=== PATIENT | male | born 1955 | race Two or more races ===

== ENCOUNTER 2019-02-03 18:39 | Emergency (ER) | payer MEDICARE, MEDICAID ==
[~2019-02-03] VITALS: Ht 167.6 cm; Wt 65.8 kg
[~2019-02-03 18:39] MED LIST: MIRTAZAPINE15 MG ORAL; SEROQUEL50 MG ORAL
--- NOTE | 2019-02-03 18:42 | NUR ---
ED Nurse Note: Pt BRIA from the street, pt had an address due to ETOH. Pt was found wth a bottle of Vodka, "hating on [place] people". Vital signs stable james. Will cont to monitor.
[2019-02-03 18:47] VITALS: BP 125/87
--- NOTE | 2019-02-03 19:07 | Emergency Room Report ---
History of Present Illness General Chief Complaint: Alcohol Intoxication Source: Patient, EMS Present Illness HPI This patient is brought in from the street by EMS. They were called because the patient was intoxicated with a bottle of vodka in his possession that was mostly empty. Apparently, he was speaking aggressively to other people on the street. A bystander called 911 for concern for their safety. The patient himself is intoxicated but has no specific complaints. Allergies: Coded Allergies: No Known Allergies (Unverified , 02/03/19) Patient History Past Surgical History: none Social History: Reports: alcohol use; Denies: smoking, drug use Reviewed Nursing Documentation: PMH: Agreed; PSxH: Agreed Nursing Documentation-PMH Past Medical History: No History, Except For History Of Psychiatric Problem: Yes Review of Systems All Other Systems: negative except mentioned in HPI Physical Exam Vital Signs Date Time Temp Pulse Resp B/P (MAP) Pulse Ox O2 Delivery O2 Flow Rate FiO2 02/03/19 18:36 98.1 100 16 146/89 (108) 100 Room Air Sp02 EP Interpretation: reviewed, normal General Appearance: no apparent distress, alert, GCS 15, non-toxic Head: normocephalic, atraumatic Eyes: bilateral eye normal inspection, bilateral eye PERRL ENT: hearing grossly normal, normal pharynx, no angioedema, normal voice Neck: full range of motion, supple/symm/no masses Respiratory: chest non-tender, lungs clear, normal breath sounds, no respiratory distress, no retraction, no accessory muscle use, speaking full sentences Cardiovascular #1: regular rate, rhythm, no edema Gastrointestinal: normal bowel sounds, non tender, soft, non-distended, no guarding, no rebound Rectal: deferred Musculoskeletal: normal range of motion, non-tender Neurologic: alert, responsive, motor strength/tone normal, speech normal Psychiatric: memory normal, mood/affect normal, no suicidal/homicidal ideation , other - Loud and aggressive verbal confabulations. Skin: normal color, no rash, warm/dry, well hydrated Medical Decision Making Diagnostic Impression: Primary Impression: Acute alcoholic intoxication ER Course This patient presents with acute alcoholic intoxication. The patient's laboratory workup was noncontributory other than an elevated EtOH and transaminitis. There is no evidence of trauma or injury on physical examination of this patient. The patient was allowed to sober up in the emergency department and was able to ambulate and articulate desire to go home. The patient was clinically sober at the time of discharge. No acute emergency medical condition is identified. The patient was educated on the dangers of alcohol intoxication and abuse. The patient was given a list of the local rehabilitation clinics. Laboratory Tests Test 02/03/19 18:45 White Blood Count 5.9 K/UL (4.8-10.8) Red Blood Count 4.43 M/UL (4.70-6.10) L Hemoglobin 13.2 G/DL (14.2-18.0) L Hematocrit 38.4 % (42.0-52.0) L Mean Corpuscular Volume 87 FL (80-99) Mean Corpuscular Hemoglobin 29.7 PG (27.0-31.0) Mean Corpuscular Hemoglobin Concent 34.3 G/DL (32.0-36.0) Red Cell Distribution Width 11.6 % (11.6-14.8) Platelet Count 254 K/UL (150-450) Mean Platelet Volume 5.2 FL (6.5-10.1) L Neutrophils (%) (Auto) 62.5 % (45.0-75.0) Lymphocytes (%) (Auto) 28.9 % (20.0-45.0) Monocytes (%) (Auto) 6.5 % (1.0-10.0) Eosinophils (%) (Auto) 1.1 % (0.0-3.0) Basophils (%) (Auto) 0.9 % (0.0-2.0) Sodium Level 138 MMOL/L (136-145) Potassium Level 3.3 MMOL/L (3.5-5.1) L Chloride Level 100 MMOL/L (98-107) Carbon Dioxide Level 24 MMOL/L (21-32) Anion Gap 14 mmol/L (5-15) Blood Urea Nitrogen 9 mg/dL (7-18) Creatinine 1.0 MG/DL (0.55-1.30) Estimate Glomerular Filtration Rate > 60 mL/min (>60) Glucose Level 126 MG/DL (74-106) H Calcium Level 9.0 MG/DL (8.5-10.1) Total Bilirubin 2.3 MG/DL (0.2-1.0) H Direct Bilirubin 0.5 MG/DL (0.0-0.3) H Aspartate Amino Transferase (AST) 105 U/L (15-37) H Alanine Aminotransferase (ALT) 77 U/L (12-78) Alkaline Phosphatase 164 U/L (46-116) H Total Protein 7.0 G/DL (6.4-8.2) Albumin 4.0 G/DL (3.4-5.0) Globulin 3.0 g/dL Albumin/Globulin Ratio 1.3 (1.0-2.7) Serum Alcohol 224 mg/dL Last Vital Signs Date Time Temp Pulse Resp B/P (MAP) Pulse Ox O2 Delivery O2 Flow Rate FiO2 02/03/19 18:47 98.1 97 20 125/87 100 Room Air Status: improved Disposition: HOME, SELF-CARE Condition: Improved Yulisa Aguillon DO Feb 03, 2019 19:07
--- NOTE | 2019-02-03 19:19 | NUR ---
ED Nurse Note: Received report from CHIRAG Duenas. Pt sleeping. VSS. No distress noted. Will continue to monitor.
[2019-02-03 19:35] VITALS: BP 122/88
--- NOTE | 2019-02-03 19:50 | NUR ---
ED Nurse Note: Pt tried escaping out of the back door confused about his current location but was apprehended by staff and security. Pt now placed back in bed with staff sitter surveillance for safety. Will continue to monitor.
[2019-02-03 19:51] LABS: BASOPHILS % (AUTO) 0.9 % (0.0-2.0); EOSINOPHILS % (AUTO) 1.1 % (0.0-3.0); HEMATOCRIT 38.4 % (42.0-52.0); HEMOGLOBIN 13.2 G/DL (14.2-18.0); LYMPHOCYTES % (AUTO) 28.9 % (20.0-45.0); MEAN CORPUSCULAR VOLUME 87 FL (80-99); MONOCYTES % (AUTO) 6.5 % (1.0-10.0); NEUTROPHILS % (AUTO) 62.5 % (45.0-75.0); PLATELET COUNT 254 K/UL (150-450); RED BLOOD COUNT 4.43 M/UL (4.70-6.10); RED CELL DISTRIBUTION WIDTH 11.6 % (11.6-14.8); WHITE BLOOD COUNT 5.9 K/UL (4.8-10.8)
[2019-02-03 19:54] LABS: ANION GAP 14 mmol/L (5-15); BLOOD UREA NITROGEN 9 mg/dL (7-18); CARBON DIOXIDE 24 MMOL/L (21-32); CHLORIDE 100 MMOL/L (98-107); POTASSIUM 3.3 MMOL/L (3.5-5.1); SODIUM 138 MMOL/L (136-145)
[2019-02-03 20:05] LABS: ALANINE AMINOTRANSFERASE 77 U/L (12-78); ALBUMIN/GLOBULIN RATIO 1.3 (1.0-2.7); ALKALINE PHOSPHATASE 164 U/L (46-116); ASPARTATE AMINO TRANSFERASE 105 U/L (15-37); BILIRUBIN,TOTAL 2.3 MG/DL (0.2-1.0)
[2019-02-03 20:06] LABS: BILIRUBIN,DIRECT 0.5 MG/DL (0.0-0.3)
[2019-02-03 20:40] VITALS: BP 129/83
--- NOTE | 2019-02-03 21:40 | NUR ---
ED Nurse Note: Pt asleep with head covered. Pt pulled off all medical monitoring devices such as BP cuff, cardiac leads and pulse ox. Sitter at bedside for monitoring. No distress at this time.
--- NOTE | 2019-02-03 22:41 | NUR ---
ED Nurse Note: Notified by CN that pt will move to a different ER room. Report given to Jorge A BEARD.
--- NOTE | 2019-02-03 22:58 | NUR ---
ED Nurse Note: Received Pt and report from CHIRAG Mccarty. Pt is AO x 4times, on room air no distress. Pt will DC later, await for ERMD order.
[2019-02-03 23:00] VITALS: BP 132/74
[2019-02-04 02:00] VITALS: BP 127/79
--- NOTE | 2019-02-04 02:30 | NUR ---
ED Nurse Note: PATIENT SLEEPING COMFORTABLY IN BED WITH NAD.
--- NOTE | 2019-02-04 03:44 | NUR ---
ED Nurse Note: Pt awake,provide drink and clean cloth.
[2019-02-04 03:45] VITALS: BP 130/82
[2019-02-04 05:55] VITALS: BP 133/88
--- NOTE | 2019-02-04 05:56 | NUR ---
Homeless Discharge: Patient is being discharged from medical care. Awake, alert and oriented x3. After care instructions, including referral to community resources were given. Patient verbalized understanding of After care instructions; at this time patient does not request medications, equipment or placement. Patient signed patient consent in the medical record for patient destination upon discharge. All medical devices such as IV and ID band were removed. Patient ambulated out with all personal belongings with steady gait. Food and drink offered.
[2019-02-04 05:58] VITALS: BP 133/88
== END 2019-02-04 06:07 | disposition home or self-care (01) ==
LOC: EDBD 18:39 → EMR 20:06
DX: F10.129 Alcohol abuse with intoxication, unspecified (principal); Y90.7 Blood alcohol level of 200-239 mg/100 ml
CPT/HCPCS: 36415; 80053; 82248; 85025; 99283; G0480; 80329

== ENCOUNTER 2019-02-06 20:47 | Emergency (ER) | payer MEDICARE, MEDICAID ==
[~2019-02-06] VITALS: Ht 195.6 cm; Wt 68.0 kg
[2019-02-06 20:50] VITALS: BP 109/74
--- NOTE | 2019-02-06 20:50 | NUR ---
ED Nurse Note: Pt was BIBA from Board care, c/o ETOH. According to EMS, pt will not be accepted by board care due to drinking. Pt is Awake, confused at this time with unsteady gait. Vital signs stable at this time, waiting for orders.
--- NOTE | 2019-02-06 21:30 | NUR ---
ED Nurse Note: Provided 2 cups of orange juice, and a sandwich.
[2019-02-06 22:25] VITALS: BP 113/72
--- NOTE | 2019-02-06 22:30 | NUR ---
ED Nurse Note: Assited pt went to bathroom.
--- NOTE | 2019-02-07 00:34 | Emergency Room Report ---
History of Present Illness General Chief Complaint: Alcohol Intoxication Source: Patient Present Illness HPI Patient was brought in by paramedics for reports of alcohol intoxication patient was reportedly acting Erratic and bystanders called police Upon arrival of the patient is refusing any care reports that he wants to go to [facility] denies any headache denies any chest pain He does admit to drinking alcohol earlier Denies any acute trauma Allergies: Coded Allergies: No Known Allergies (Unverified , 02/03/19) UNABLE TO ASSESS (Unverified , 02/06/19) Patient History Past Medical History: see triage record Pertinent Family History: none Reviewed Nursing Documentation: PMH: Agreed; PSxH: Agreed Nursing Documentation-PMH Past Medical History: No History, Except For History Of Psychiatric Problem: Yes Review of Systems All Other Systems: negative except mentioned in HPI Physical Exam Vital Signs Date Time Temp Pulse Resp B/P (MAP) Pulse Ox O2 Delivery O2 Flow Rate FiO2 02/06/19 20:45 97.3 100 18 105/75 (85) 98 Room Air Sp02 EP Interpretation: reviewed, normal General Appearance: well appearing, no apparent distress Head: normocephalic, atraumatic Eyes: bilateral eye PERRL, bilateral eye EOMI ENT: hearing grossly normal, normal pharynx, TMs + canals normal, uvula midline Neck: full range of motion, supple, no meningismus, no bony tend Respiratory: lungs clear, normal breath sounds, no rhonchi, no respiratory distress, no retraction, no accessory muscle use Cardiovascular #1: normal peripheral pulses, regular rate, rhythm, no edema, no gallop, no JVD, no murmur Gastrointestinal: normal bowel sounds, non tender, soft, no mass, no organomegaly, non-distended, no guarding, no hernia, no pulsatile mass, no rebound Genitourinary: no CVA tenderness Musculoskeletal: normal inspection Neurologic: oriented x3, responsive, data entry representative III-XII nml as tested, motor strength/ tone normal, sensory intact Psychiatric: mood/affect normal Skin: normal color, no rash, warm/dry, palpation normal Lymphatic: normal inspection, no adenopathy Medical Decision Making Diagnostic Impression: Primary Impression: Alcohol abuse ER Course Patient was allowed to rest throughout the night in the morning time patient has awakened is Clinically sober and has appropriate decision-making capacity Requesting to go home Given the patient's improvement he is discharged for close outpatient follow-up Last Vital Signs Date Time Temp Pulse Resp B/P (MAP) Pulse Ox O2 Delivery O2 Flow Rate FiO2 02/06/19 20:50 100 18 Room Air 02/06/19 20:50 97.8 109/74 98 Status: improved Disposition: HOME, SELF-CARE Condition: Improved Referrals: [facility],REFERRING (PCP) Additional Instructions: Patient is provided with the discharge instructions notified to follow up with primary doctor in the next 2-3 days otherwise return to the er with any worsening symptoms. Please note that this report is being documented using [employer] technology. This can lead to erroneous entry secondary to incorrect interpretation by the dictating instrument. Phan Macdonald DO Feb 07, 2019 00:34
[2019-02-07 05:50] VITALS: BP 115/74
[2019-02-07 06:04] VITALS: BP 106/72
--- NOTE | 2019-02-07 06:04 | NUR ---
Homeless Discharge: Patient is being discharged from medical care. Awake, alert and oriented x4. Pt states that he was from a Board Care at [address] [place] [address]. After care instructions, including referral to community resources were given. Patient verbalized understanding of After care instructions; at this time patient does not request medications, equipment or placement. Patient signed patient consent in the medical record for patient destination upon discharge. All medical devices such as IV and ID band were removed. Patient ambulated out with all personal belongings with steady gait.
== END 2019-02-07 06:04 | disposition home or self-care (01) ==
LOC: EDBD 20:47 → EMR 22:37
DX: F10.129 Alcohol abuse with intoxication, unspecified (principal)
CPT/HCPCS: 99283